=== PATIENT | male | born 1950 | race Caucasian/White ===

== ENCOUNTER 2022-09-20 05:38 | Inpatient (IN) ==
[2022-09-20] MEDS ORDERED: Buffered Lidocaine 1% SYRIN 1 ml ONE (05:57)
[2022-09-20] MEDS ORDERED: ceFAZolin 2 GM PREMIX 2 GM/50 ML BAG ONE (05:57)
[2022-09-20] MEDS ORDERED: Lactated Ringers 1000 ml BAG 1,000 ML IV SCH (06:00)
[2022-09-20] MEDS ORDERED: Buffered Lidocaine 1% SYRIN 1 ml INTRADERM ONE (06:00)
[2022-09-20] MEDS ORDERED: Ropivacaine 5 MG/ML 20 ML VIAL 0.5% (100 MG) ONE (06:51)
[2022-09-20] MEDS ORDERED: fentaNYL 100 mcg/2 ml 50 MCG/ML VIAL ONE ×3 (07:15→10:59)
[2022-09-20] MEDS ORDERED: ROPIVACAINE 5 MG/ML 30 ML BTL (0.5%) ONE (07:16)
[2022-09-20] MEDS ORDERED: Midazolam 2 mg/2 ml VIAL 1 mg/ml 2 ml VIAL (2 mg) ONE (07:16)
[2022-09-20] MEDS ORDERED: fentaNYL 100 mcg/2 ml 50 MCG/ML VIAL IV PRN (08:29)
[2022-09-20] MEDS ORDERED: Naloxone 0.4 mg VIAL 0.4 mg/ml 1 ml VIAL IV PRN (08:29)
[2022-09-20] MEDS ORDERED: Lidocaine 2% PF 5 ML VIAL ONE (08:30)
[2022-09-20] MEDS ORDERED: Ondansetron 4 mg VIAL 2 MG/ML 2 ml VIAL ONE ×2 (08:44→08:53)
[2022-09-20] MEDS ORDERED: Ketamine HCL 50 mg/ml 10 ml VIAL (500 MG) ONE (09:02)
[2022-09-20] MEDS ORDERED: Ondansetron 4 mg VIAL 2 MG/ML 2 ml VIAL IV PRN (09:11)
[2022-09-20] MEDS ORDERED: Ondansetron ODT 4 mg TAB 4 MG TAB PO PRN (09:11)
[2022-09-20] MEDS ORDERED: Lactulose 30 ml UDC PO PRN (09:11)
[2022-09-20] MEDS ORDERED: Magnesium Hydroxide LIQ 30 ML UDC PO PRN (09:11)
[2022-09-20] MEDS ORDERED: Morphine 2 MG/ML SYRINGE IV PRN (09:11)
[2022-09-20] MEDS ORDERED: Acetaminophen IV 1 GM/100ML 1,000 MG/100 ML BAG IV ONE (09:48)
[2022-09-20] MEDS ORDERED: Dexamethasone IV 4 MG/ML VIAL 1 ml VIAL ONE (09:50)
[2022-09-20] MEDS ORDERED: Dextrose 50% Syringe 50 ml 25 GM/50 ML SYRINGE IV PUSH PRN (10:28)
[2022-09-20] MEDS: Lactated Ringers 1000 ml BAG 1,000 ML IV SCH ×2 (11:50→22:05)
[2022-09-20] MEDS: ceFAZolin 1 GM ADVAN 1 GM in NS 0.9% 50 ML 50 ML IVPB SCH ×2 (16:33→23:34)
[2022-09-20] MEDS ORDERED: HYDROcodone/ACETAMIN 5/325 mg TAB PO PRN (16:44)
[2022-09-20] MEDS ORDERED: Insulin GLARGINE 100 un/ml 10 ml VIAL SUBCUT SCH ×2 (21:00)
[2022-09-20] MEDS: Sotalol 120 mg TAB (NF) PO SCH (21:21)
[2022-09-20] MEDS: Magnesium Hydroxide LIQ 30 ML UDC PO SCH (21:24)
[2022-09-21 06:19] LABS: Hematocrit 30 % (42-52); Hemoglobin 10.4 g/dL (14.0-18.0); Mean Platelet Volume 10.8 fL (7.4-10.4); Platelet Count 116 10^3/uL (150-450)
[2022-09-21 06:24] LABS: Calcium 8.3 mg/dL (8.6-10.3); Creatinine, Serum 0.93 mg/dL (0.67-1.17); eGFR CKD-EPI 88.9 (>60)
[2022-09-21 07:19] VITALS: BP 115/73
[2022-09-21] MEDS: ceFAZolin 1 GM ADVAN 1 GM in NS 0.9% 50 ML 50 ML IVPB SCH (07:28)
[2022-09-21] MEDS: Magnesium Hydroxide LIQ 30 ML UDC PO SCH (07:39)
[2022-09-21] MEDS: Sotalol 120 mg TAB (NF) PO SCH (07:41)
[2022-09-21] MEDS ORDERED: IRBESARTAN HYDROCHLOROTHIAZIDE PO SCH (09:00)
[2022-09-21] MEDS ORDERED: Vitamin THERAPEUTIC TAB PO SCH (09:00)
== END 2022-09-21 11:50 | disposition home or self-care (01) | DRG 470 ==
LOC: INTOOBSV 05:38 → AA 05:38 → SSU 09:11
PROVIDERS: ADMIT Orthopaedic Surgery Adult Reconstructive Orthopaedic Surgery; ATTEND Orthopaedic Surgery Adult Reconstructive Orthopaedic Surgery